=== PATIENT | male | born 1955 | race Caucasian/White ===

== ENCOUNTER 2019-07-10 13:52 | Outpatient (CLI) | payer MEDICARE, BC ==
--- NOTE | 2019-07-10 16:34 | MRI ---
MRI OF THE RIGHT KNEE: 07/10/19 PROVIDED CLINICAL HISTORY: Right knee pain. FINDINGS: There is mucinous degeneration of the anterior cruciate ligament demonstrated. The posterior cruciate ligament, medial collateral ligament and lateral collateral ligamentous complex demonstrate a normal MR appearance. There is complex degenerative tearing/maceration involving the body and body/posterior horn junction of the medial meniscus. The lateral meniscus demonstrates no evidence for tear. There is extensive full thickness articular cartilage absence involving the central weightbearing por tions of the medial femorotibial joint. Articular cartilage appears otherwise preserved. There is a mild knee joint effusion with Cao's cyst formation. Osteophyte formation is seen about the knee. Subcortical cyst-like change seen within the medial femo ral condyle and medial tibial plateau. No focal concerning regional marrow of muscular signal abnorma lity apparent. Several ossified intra-articular bodies are seen at the medial aspect of the knee post erior to the medial meniscal root, measuring about 6 mm maximally. IMPRESSION: 1. Maceration/complex degenerative tearing involving the body and body/posterior horn junction o f the medial meniscus. 2. 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 3. Mild knee joint effusion with Cao's cyst. POS: VERENA
== END 2019-07-10 13:53 | disposition home or self-care (01) ==
LOC: BICMRI 13:52
PROVIDERS: ATTEND Orthopaedic Surgery
DX: M17.11 Unilateral primary osteoarthritis, right knee (principal); M25.561 Pain in right knee; M23.221 Derangement of posterior horn of medial meniscus due to old tear or injury, right knee; M25.461 Effusion, right knee; M71.21 Synovial cyst of popliteal space [Baker], right knee